=== PATIENT | female | born 1995 | race American Indian/Alaskan Native ===

== ENCOUNTER 2017-02-28 08:56 | Outpatient (CLI) | payer OTHER ==
[2017-02-28] MEDS ORDERED: LACTATED RINGERS 1,000 ML IV ONE ×2 (09:01→13:13)
[2017-02-28 09:28] LABS: Urine Drugs of Abuse Note Disclamer
[2017-02-28 09:46] LABS: Bacteria,Urine 1+ /HPF (Negative); Bilirubin,Urine NEG (Negative); Blood,Urine NEG (Negative); Ketones,Urine NEG (Negative); Leukocyte Esterase,Urine NEG (Negative); Mucus,Urine 3+ /HPF; Nitrite,Urine NEG (Negative); Protein,Urine <15 mg/dL mg/dL (Negative)
[2017-02-28 10:30] VITALS: BP 111/65
--- NOTE | 2017-02-28 12:19 | Ultrasound Report ---
FINAL REPORT EXAM: US OB LIMITED HISTORY: vaginal bleeding, suspected abruption TECHNIQUE: Transabdominal OB ultrasound. PRIORS: None currently available. FINDINGS: Single intrauterine . Presentation: Cephalic. Placenta: Posterior and grade 1. No previa. No abruption. U shaped funneling of the cervix identified. Cervix is dilated approximately 1.8 cm. Closed cervical length measures 1.04 cm. heart rate: 145 BPM. IMPRESSION: Single live intrauterine . Cervical funneling.
[2017-02-28] MEDS ORDERED: LACTATED RINGERS 1,000 ML ONE (13:14)
[2017-02-28] MEDS ORDERED: FLAGYL PO ONE (14:00)
== END 2017-02-28 15:25 | disposition home or self-care (01) ==
LOC: TRG 08:56
PROVIDERS: ATTEND Obstetrics & Gynecology
DX: O26.872 Cervical shortening, second trimester (principal); O47.02 False labor before 37 completed weeks of gestation, second trimester; Z3A.22 22 weeks gestation of pregnancy
CPT/HCPCS: 36415; 59025; 76815; 80307; 81001; 82731; 87591; 96360; J7120